=== PATIENT | male | born 1955 | race Caucasian/White ===

== ENCOUNTER 2016-10-31 13:54 | Emergency (ER) | payer OTHER ==
--- NOTE | 2016-10-31 14:47 | EDPHY ---
H & P Time Seen by Provider: 10/31/16 14:46 HPI/ROS: CHIEF COMPLAINT: Flashing spots in the right eye yesterday HISTORY OF PRESENT ILLNESS: Patient has a long history of floaters which she describes as looking like a hair or spot in his right eye for many years. Yesterday he noticed some more intense black spots in his right eye only which had a sharp border. In the afternoon for 3-4 hours he had intermittent bright flashes of light on the top and the right side of his right eye. Today he feels like there is a quinonez smudge in the right eye which is slightly bigger than 1 of the spots. REVIEW OF SYSTEMS: No trauma. No headache. No weakness or numbness in extremities. 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 Visual acuity: noted from nursing notes. 20/25 each eye and bilaterally. Lids and Lashes: No edema, no stye, no erythema. Conjunctivae: Not injected, no exudate. Sclera: No subconjunctival hemorrhage, no icterus. Pupils: Equal and round, normally reactive. Corneas:No foreign body on surface of cornea. Anterior chamber: normal, no hyphema or hypopyon. Ophthalmoscope exam unable to the completely view discs. External: No proptosis, no periorbital swelling or redness or tenderness. Patient presents with possible symptoms of retinal detachment which have resolved with good visual acuity. Vitreous hemorrhage also considered. Discussion with Ophthalmology. Smoking Status: Current every day smoker Constitutional: Initial Vital Signs Temperature (C) 36.7 C 10/31/16 14:04 Heart Rate 96 10/31/16 14:04 Respiratory Rate 17 10/31/16 14:04 Blood Pressure 139/94 H 10/31/16 14:04 O2 Sat (%) 96 10/31/16 14:04 O2 Delivery Mode Room Air Allergies/Adverse Reactions: No Known Allergies Allergy (Verified 10/31/16 14:03) Home Medications: Medication Instructions Recorded Htn Med From [facility] 10/31/16 MDM/Departure - MDM ED Course/Re-evaluation: Discussed with on-call sewing teacher Dr. Ismael Henley at 3:15 p.m. his recommendation is the patient will go to his office on Wednesday at 8:30 a.m.. He does not recommend emergent ophthalmologic evaluation prior to that time. - Depart Disposition: Home, Routine, Self-Care Clinical Impression: Floaters in visual field Qualifiers: Laterality: right Qualified Code(s): H43.391 - Other vitreous opacities, right eye Condition: Good Instructions: Visual Floaters (ED) Additional Instructions: Follow-up with sewing teacher as indicated below. Please return if you get any decrease in you vision or recurrence of a flashing lights. It is possible that you have a vitreous hemorrhage, or a retinal detachment that has spontaneously reattached. Referrals: Ismael Henley MD [Medical Doctor] - 11/02/16 8:30 am
[2016-10-31 15:32] VITALS: BP 142/67; PULSE 74; RESP 16; TEMP 98.2; O2SAT 94
== END 2016-10-31 15:32 | disposition home or self-care (01) ==
DX: H43.391 Other vitreous opacities, right eye (principal); I10 Essential (primary) hypertension; F17.200 Nicotine dependence, unspecified, uncomplicated